=== PATIENT | male | born 1975 | race Caucasian/White ===

== ENCOUNTER 2019-06-22 23:13 | Inpatient (IN) | payer MEDICAID ==
[~2019-06-22] VITALS: Ht 175.3 cm; Wt 63.6 kg
[2019-06-23] VITALS (28 sets, daily range): BP systolic 116–189; BP diastolic 72–109; Ht 175.3 cm; Wt 63.6 kg
--- NOTE | 2019-06-23 | NUR ---
PT RECIEVED VIA STRETCHER FROM ED. TRANSFERRED TO BED INDEPENDENTLY. DENIES PAIN. VOIDED IN URINAL BEFORE GETTING IN BED. URINE IS BLOOD TINGED. CARDENE GTT BEING TITRATED TO KEEP SBP <140.
[2019-06-23 03:40] LABS: BASOPHILS 0.7 % (0-2); EOSINOPHILS 3.7 % (0-7); HEMATOCRIT 38.9 % (42.0-54.0); HEMOGLOBIN 13.5 g/dL (13.5-17.5); LYMPHOCYTES 26.2 % (15-50); MCH 33.7 pg (26.0-34.0); MCHC 34.7 g/dL (31.0-37.0); MEAN PLATELET VOLUME 10.3 fL (7.4-10.4); MONOCYTES 7.5 % (2-11); NEUTROPHILS 61.9 % (40-80); PLATELET COUNT 158 10x3/uL (130-400); RBC 4.01 10x6/uL (4.20-6.10); RDW 12.6 % (11.5-14.5)
[2019-06-23 04:04] LABS: ALBUMIN 3.5 g/dL (3.4-5.0); ANION GAP 13.8 mmol/L (8-16); BILIRUBIN - TOTAL 0.72 mg/dL (0.2-1.3); CALCIUM 8.1 mg/dL (8.5-10.1); CARBON DIOXIDE 24.2 mmol/L (21.0-32.0); MAGNESIUM - SERUM 1.7 mg/dL (1.8-2.4); PHOSPHOROUS 2.7 mg/dL (2.5-4.9); PROTEIN - SERUM 6.3 g/dL (6.4-8.2); THYROID STIMULATING HORMONE 2.67 uIU/mL (0.36-3.74); TROPONIN-I 0.039 ng/mL (0.000-0.060)
--- NOTE | 2019-06-23 05:00 | NUR ---
CARDENE GTT OFF. PT IS SLEEPING. NO SIGN OF DISTRESS.
--- NOTE | 2019-06-23 07:00 | NUR ---
REPORT RECEVIED FROM THE OFF GOING RN. SEE ASSESSMENT IN THE PTS FLOW SHEET. PT A&O X4. CALM AND COOPERATIVE MOOD. PT ABLE TO MOVE INDEPENDETLY. VSS. RA NSR ON THE MONITOR. BP STABLE. PT DENIES PAIN AT THIS TIME. BREAKFAST TRAY PROVIDED FOR THE PT. PT ABLE TO STAND WITH A NORMAL STEADY GAIT AND VOID CLEAR YELLOW URINE IN THE URNIAL. CALL LIGHT IN REACH. WILL CONT POC.
--- NOTE | 2019-06-23 07:00 | NUR ---
VOIDED IN URINAL. URINE IS CLEAR THIS AM. CARDENE REMAINS OFF.
--- NOTE | 2019-06-23 08:35 | NUR ---
PT STARTED THROWING UP. PT STATED "IT WAS THE REALLY DRY BISCUTE" I ASKED IF HE WAS HURTING AND HE STATED THAT HE HAS A HEADACHE. MORPHINE AND ZOFRAN GIVEN. SEE MAR. WILL REASSESS.
--- NOTE | 2019-06-23 09:32 | NUR ---
AM MEDS GIVEN. PT STATES "I FEEL MUCH BETTER" CALL LIGHT IN REACH. WILL CONT POC.
--- NOTE | 2019-06-23 10:30 | NUR ---
DR HENSLEY PAGED R/T BOARDERLINE HTN.
--- NOTE | 2019-06-23 11:00 | NUR ---
REASSESSMENT COMPLETED. SEE FLOW SHEET.
--- NOTE | 2019-06-23 12:30 | NUR ---
DR HENSLEY REPAGED R/T BOARDERLINE HTN.
--- NOTE | 2019-06-23 13:34 | NUR ---
SPOKE WITH DR CHANG. SEE ORDERS.
--- NOTE | 2019-06-23 13:59 | NUR ---
DR VARGAS AT THE PTS BEDSIDE. OK TO TRANSFER TO THE FLOOR.
[2019-06-23 14:19] LABS: ANION GAP 9.4 mmol/L (8-16); CALCIUM 8.7 mg/dL (8.5-10.1); CARBON DIOXIDE 27.3 mmol/L (21.0-32.0); CREATININE - SERUM 2.1 mg/dL (0.6-1.3); MAGNESIUM - SERUM 1.8 mg/dL (1.8-2.4)
[2019-06-23 14:23] LABS: POTASSIUM - SERUM 3.7 mmol/L (3.5-5.1)
--- NOTE | 2019-06-23 15:29 | NUR ---
ELL TEACHER AT THE PTS BEDSIDE.
--- NOTE | 2019-06-23 16:00 | NUR ---
REPORT CALLED TO GEOVANNA ON MED 3. TRANSFERED DELAYED DUE TO ROOM BEING CLEANED.
--- NOTE | 2019-06-23 16:45 | NUR ---
ROOM CLEANED AND PT TRANSPORTED VIA WC BY CHARGE NURSE IN A STABLE CONDITION.
--- NOTE | 2019-06-23 16:59 | NUR ---
HERE FOR OBSERVATION. MAY DC IN AM. ALERT ADN ORIENTED. DINNER ORDERED. NOT C/O PAIN OR DISTRESS NOTED. TRANSFERED FROM CVICU AT THIS TIME. R NATALIA ALLISON. CL IN REACH.
--- NOTE | 2019-06-23 18:13 | NUR ---
NO CHANGE IN ASSESSMENT. RESP EVEN AND UNLABORED. CL IN REACH.
--- NOTE | 2019-06-23 18:16 | NUR ---
NPO AFTER MN TONIGHT OR ZORA IN INDUSTRIAL SERVICER.
--- NOTE | 2019-06-23 19:29 | NUR ---
PT LYING IN BED WATCHING TV. CL IN REACH. DENIES NEEDS AT THIS TIME. BED IN LOW SIDE RAILS X2. LUNGS CLEAR. BOWEL ACTIVE X4. A/O X4. UP AD CECE. RESP EVEN AND UNLABORED. WILL CONTINUE TO MONITOR.
--- NOTE | 2019-06-23 22:15 | NUR ---
PAGED HECTOR ABOUT BP BEING 189/104, HECTOR ORDERED ONE TIME DOSE OF CLONIDINE AND WILL RECHECK BACK AT MIDNIGHT AND SEE IF MED WAS SUCCESSFUL. WILL CONTINUE TO MONITOR.
[2019-06-23 22:45] LABS: APPEARANCE CLEAR (CLEAR); BILIRUBIN NEGATIVE (NEGATIVE); COLOR YELLOW (YELLOW); GLUCOSE NEGATIVE (NEGATIVE); KETONE NEGATIVE (NEGATIVE); NITRITE NEGATIVE (NEGATIVE); PROTEIN NEGATIVE (NEGATIVE); SPECIFIC GRAVITY 1.015 (1.005-1.020); UROBILINOGEN NORMAL (NORMAL)
--- NOTE | 2019-06-23 22:57 | NUR ---
BP TAKEN BEFORE CLONIDINE WAS GIVEN 183/109 PULSE 77 WILL RECHECK IN AN HOUR
[2019-06-24] VITALS (9 sets, daily range): BP systolic 173–201; BP diastolic 108–130
--- NOTE | 2019-06-24 01:30 | NUR ---
BP 166/113 PAGED HECTOR ZIMMER AND ORDERED NORVASC 2.5 MG ONE TIME ORDER WILL CONTINUE TO MONITOR.
--- NOTE | 2019-06-24 03:33 | NUR ---
I have reviewed this patient and I concur with the Shift Assessment completed by the Licensed Practical Nurse today this shift.
[2019-06-24 05:36] LABS: BASOPHILS 0.5 % (0-2); EOSINOPHILS 3.4 % (0-7); HEMATOCRIT 37.9 % (42.0-54.0); IMMATURE GRANULOCYTES 0.2 % (0-5); LYMPHOCYTES 29.4 % (15-50); MCHC 34.3 g/dL (31.0-37.0); MEAN PLATELET VOLUME 10.5 fL (7.4-10.4); NEUTROPHILS 59.5 % (40-80); PLATELET COUNT 175 10x3/uL (130-400); RBC 3.82 10x6/uL (4.20-6.10); RDW 12.9 % (11.5-14.5); WBC 5.5 10x3/uL (4.8-10.8)
[2019-06-24 06:03] LABS: MCV 99.2 fL (80.0-100.0)
[2019-06-24 06:11] LABS: ANION GAP 9.5 mmol/L (8-16); CALCIUM 8.8 mg/dL (8.5-10.1); CARBON DIOXIDE 28.5 mmol/L (21.0-32.0)
--- NOTE | 2019-06-24 07:14 | NUR ---
PT IS RESTING IN BED WITH EYES OPEN. RESPIRATIONS ARE EVEN AND UNLABORED. PT IS AAO X 4. PT DENIES PRESENCE OF NUMBNESS/TINGLING/DIZZINESS/SYNCOPE. SEE FLOWSHEET FOR VITALS. PT DENIES PRESENCE OF PAIN/N/V AT THIS TIME. BED IS IN THE LOWEST POSITION. CALL LIGHT AND BEDSIDE TABLE ARE WITHIN REACH. SIDE RAILS X 2. PT DENIES FURTHER NEEDS. WILL CONT TO MONITOR.
--- NOTE | 2019-06-24 08:00 | NUR ---
RACHAEL HOPPER APRN PAGED TO NOTIFY OF PT HTN.
--- NOTE | 2019-06-24 08:04 | NUR ---
RACHAEL HOPPER APRN RETURN PAGE AND GAVE INSTRUCTIONS TO NOTIFY NANCY RENEE. PAGE PLACED TO NANCY RENEE.
--- NOTE | 2019-06-24 08:21 | NUR ---
NANCY BORJA APRN RETURNED PAGE AND NOTIFIED OF PT STATE AND MEDICATIONS ADMINISTERED. SEE EMAR. TELEPHONE ORDERS RECD ARE APRESOLINE 10MG IV Q 6 HOURS PRN FOR SBP >170 AND DBP >[address] ORDERS.
--- NOTE | 2019-06-24 10:05 | NUR ---
MANUAL BP 180/110. WILL ADMINISTER PRN APRESOLINE. SEE EMAR. PT DENIES PRESENCE OF HEADACHE/BLURRED VISION PT WITH NO APPARENT S/S OF DISTRESS NOTED AT THIS TIME. BED IS IN THE LOWEST POSITION. CALL LIGHT AND BEDSIDE TABLE ARE WITHIN REACH. SIDE RAILS X 2. WILL CONT TO MONITOR.
--- NOTE | 2019-06-24 12:24 | NUR ---
PT AMBULATES TO NURSE STATION STATING "HEY I NOTICED THAT I WAS GETTING A LITTLE LIGHT HEADED AND WANTED YOU TO KNOW AND SEE IF YOU COULD CHECK MY BLOOD PRESSURE". PT AMBULATES BACK TO PT ROOM WITHOUT DIFFICULTY AND SITS IN BED AND BEGINS EATING LUNCH TRAY. MANUAL BP OBTAINED AT 200/120. PAGE PLACED TO NANCY BORJA APRN TO NOTIFY.
--- NOTE | 2019-06-24 16:27 | NUR ---
PT CONTINUES WITH HTN. SEE EMAR AND VITALS FLOWSHEET. PT DOES NOT HAVE ANY APPARENT S/S OF DISTRESS AT THIS TIME. PT DENIES PRESENCE OF PAIN/N/V/DIZZINESS AT THIS TIME. BED IS IN THE LOWEST POSITION. CALL LIGHT AND BEDSIDE TABLE ARE WITHIN REACH. SIDE RAILS X 2. WILL CONT TO MONITOR.
--- NOTE | 2019-06-24 16:59 | MORECARE ---
CASE MANAGEMENT DISCHARGE SUMMARY PATIENT: EMMY SHIELDS UNIT: [id number] ADM DATE: 06/22/19 AGE: 44 : 79 SEX: M ROOM/BED: D.1210 AUTHOR: MERIDOC PHYSICIAN: REFERRING PHYSICIAN: BOB HENSLEY MD DATE OF SERVICE: 06/24/19 Discharge Plan Patient Name: EMMY SHIELDS Facility: [facility]:[place] : 1975 Planned Disposition: Anticipated Discharge Date: Discharge Date: Expected LOS: Initial Reviewer: [email or web address] Initial Review Date: 06/24/2019 Generated: 06/24/19 5:59 pm Comments DCP- Discharge Planning Updated by [email or web address]: Melly Soto on 06/24/19 3:[address] Patient Name: EMMY SHIELDS Admission Status: ER Accout number: [id number] Admission Date: 06-22-2019 : 1975 Admission Diagnosis: Attending: BOB OLIVERA Current LOS: 2 Anticipated DC Date: Planned Disposition: Primary Insurance: MEDICAID [place] PENDING Discharge Planning Comments: CM met with patient at bedside after explaining CM role and obtaining verbal consent. Patient lives at home alone where he is independent with his care and plans to return there upon discharge. Patient feels this would be a safe discharge. CM discussed availability / needs of home health and medical equipment. Patient states his brother is going to get him a B/P cuff. Patient denies any discharge needs at this time. Patient states he will have his family drive him home upon discharge. Patient may need assistance with medication at discharge since Medicaid is pending CM will continue to follow and assist as needed with discharge planning / needs. Batch Plant Supervisor: Melly Soto DCPIA - Discharge Planning Initial Assessment Updated by [email or web address]: Melly Soto on 06/24/19 4:52 pm * Is the patient Alert and Oriented? Yes * How many steps to enter\exit or inside your home? * PCP NO PCP * Pharmacy [facility] * Preadmission Environment Home Alone * ADLs Independent * Equipment None * List name and contact numbers for known caregivers / representatives who currently or will assist patient after discharge: JIMMIE SHIELDS - BROTHER- [phone] * Verbal permission to speak to the caregivers and representatives has been obtained from the patient. Yes * Community resources currently utilized None * Additional services required to return to the preadmission environment? No * Can the patient safely return to the preadmission environment? Yes * Has this patient been hospitalized within the prior 30 days at any hospital? No Patient Name: EMMY SHIELDS Page 12395 at 1659 All edits/amendments must be made on the electronic document DICTATION DATE: 06/24/191658 POWER PLANT MECHANIC: AMIE 06/24/191658 RPT#: [id number] DC DATE: STATUS: ADM IN [facility] [address] [place] [address] END OF REPORT
--- NOTE | 2019-06-24 18:01 | NUR ---
PT ARRIVES TO ROOM VIA WHEELCHAIR ESCORTED BY ICU NURSE MELIZA. PT IS AAO X 4. PT RESPIRATIONS ARE EVEN AND UNLABORED. PT DENIES PRESENCE OF PAIN/N/V/DIZZINESS AT THIS TIME. PIV TO RIGHT AND LEFT FA ARE SL AND FLUSH WITHOUT DIFFICULTY. VSS. SEE FLOWSHEET. PT ORIENTED TO FLOOR AND ROOM. PT DENIES FURTHER QUESTIONS/NEEDS AT THIS TIME. BED IS IN THE LOWEST POSITION. CALL LIGHT AND BEDSIDE TABLE ARE WITHIN REACH. SIDE RAILS X 2. WILL CONT TO MONITOR.
--- NOTE | 2019-06-24 18:35 | NUR ---
PT RESTING IN BED WITH EYES OPEN. RESPIRATIONS ARE EVEN AND UNLABORED. PT BP IS 178/112 MANUAL. PT WITHOUT APPARENT S/S OF DISTRESS.
--- NOTE | 2019-06-24 19:29 | NUR ---
PT BP 201/127 PRN CLONIDINE GIVEN PER PROTOCOL. WILL CONTINUE TO MONITOR. CL IN REACH. A/O X4. PT SITTING UP EATING POPEYES AND WATCHING TV. DENIES NEEDS AT THIS TIME. RESP EVEN AND UNLABORED. LUNGS CLEAR. BOWEL ACTIVE X4. NO S/S OF DISTRESS AND DENIES FEELING DIFFERENT DUE TO HIGH BP.
[2019-06-25] VITALS (11 sets, daily range): BP systolic 144–187; BP diastolic 90–122
--- NOTE | 2019-06-25 00:03 | NUR ---
BP OF 160/116, PRN CLONIDINE GIVEN. WCTM
--- NOTE | 2019-06-25 01:08 | NUR ---
I have reviewed this patient and I concur with the Shift Assessment completed by the Licensed Practical Nurse today this shift.
--- NOTE | 2019-06-25 05:12 | NUR ---
PRN APPRESOLINE GIVEN FOR BP OF 174/114. WILL RECHECK IN AN HR AND GIVE CLONIDINE IF STILL ELEVATED
--- NOTE | 2019-06-25 06:04 | NUR ---
PT BP LOWERED TO 151/90 AFTER APRESOLINE WAS ADMINISTERED. WILL HOLD OFF ON CLONIDINE DUE TO PERAMETERS. WCTM
[2019-06-25 06:18] LABS: BASOPHILS 0.5 % (0-2); EOSINOPHILS 2.2 % (0-7); HEMATOCRIT 38.1 % (42.0-54.0); HEMOGLOBIN 13.2 g/dL (13.5-17.5); IMMATURE GRANULOCYTES 0.2 % (0-5); LYMPHOCYTES 26.7 % (15-50); MCH 34.2 pg (26.0-34.0); MCHC 34.6 g/dL (31.0-37.0); MCV 98.7 fL (80.0-100.0); MEAN PLATELET VOLUME 10.8 fL (7.4-10.4); MONOCYTES 6.8 % (2-11); NEUTROPHILS 63.6 % (40-80); PLATELET COUNT 179 10x3/uL (130-400); RBC 3.86 10x6/uL (4.20-6.10); RDW 12.8 % (11.5-14.5)
[2019-06-25 06:32] LABS: ANION GAP 14.5 mmol/L (8-16); CALCIUM 8.8 mg/dL (8.5-10.1); CARBON DIOXIDE 23.5 mmol/L (21.0-32.0); CREATININE - SERUM 1.8 mg/dL (0.6-1.3); PHOSPHOROUS 2.7 mg/dL (2.5-4.9)
--- NOTE | 2019-06-25 08:33 | NUR ---
PT BP 181/122. AM MEDS GIVEN. PRN HYDRALIZINE GIVEN AT THIS TIME. WILL RECHECK.
--- NOTE | 2019-06-25 09:48 | NUR ---
PT BP RECHECK AT 0938 167/104. PT C/O OF NAUSEA AND THEN WENT TO THE BR VOMITTING. PRN ZOFRAN, TYLENOL AND CATAPRES GIVEN AT THIS TIME. PT PROVIDED WITH COLD WASH CLOTH AND SPRITE. AYESHA.
--- NOTE | 2019-06-25 10:31 | NUR ---
PT BP RECHECK 158/102 AT THIS TIME.
--- NOTE | 2019-06-25 11:42 | NUR ---
PT BP RECHECK 144/94.
--- NOTE | 2019-06-25 14:34 | NUR ---
PT BP 172/115. REC'D CLONIDINE PATCH FROM PHARMACY AND APPLIED TO PT. WILL RECHECK IN THIRTY MNUTES TO EVALUATE NEED FOR PRN MEDICATION.
--- NOTE | 2019-06-25 15:08 | NUR ---
PT BP RECHECK 187/121. PRN HYDRALIZINE GIVEN AT THIS TIME.
--- NOTE | 2019-06-25 17:18 | MORECARE ---
CASE MANAGEMENT DISCHARGE SUMMARY PATIENT: EMMY SHIELDS UNIT: [id number] ADM DATE: 06/22/19 AGE: 44 : 79 SEX: M ROOM/BED: D.2225 AUTHOR: MERIDOC PHYSICIAN: REFERRING PHYSICIAN: BOB HENSLEY MD DATE OF SERVICE: 06/25/19 Discharge Plan Patient Name: EMMY SHIELDS Facility: [facility]:[place] : 1975 Planned Disposition: Anticipated Discharge Date: Discharge Date: Expected LOS: Initial Reviewer: [email or web address] Initial Review Date: 06/24/2019 Generated: 06/25/19 6:17 pm Comments DCP- Discharge Planning Updated by [email or web address]: Sandy Flores on 06/25/19 4:[address] Per desiree Colemangreenhouse technician, there is no TRANSFER BACK agreement documented with [facility]. DCP- Discharge Planning Updated by [email or web address]: Melly Soto on 06/24/19 3:[address] Patient Name: EMMY SHIELDS Admission Status: ER Accout number: [id number] Admission Date: 06-22-2019 : 1975 Admission Diagnosis: Attending: BOB OLIVERA Current LOS: 2 Anticipated DC Date: Planned Disposition: Primary Insurance: MEDICAID [place] PENDING Discharge Planning Comments: CM met with patient at bedside after explaining CM role and obtaining verbal consent. Patient lives at home alone where he is independent with his care and plans to return there upon discharge. Patient feels this would be a safe discharge. CM discussed availability / needs of home health and medical equipment. Patient states his brother is going to get him a B/P cuff. Patient denies any discharge needs at this time. Patient states he will have his family drive him home upon discharge. Patient may need assistance with medication at discharge since Medicaid is pending CM will continue to follow and assist as needed with discharge planning / needs. Stock Dealer: Melly Soto DCPIA - Discharge Planning Initial Assessment Updated by [email or web address]: Melly Soto on 06/24/19 4:52 pm * Is the patient Alert and Oriented? Yes * How many steps to enter\exit or inside your home? * PCP NO PCP * Pharmacy [facility] * Preadmission Environment Home Alone * ADLs Independent * Equipment None * List name and contact numbers for known caregivers / representatives who currently or will assist patient after discharge: JIMMIE SHIELDS - BROTHER- [phone] * Verbal permission to speak to the caregivers and representatives has been obtained from the patient. Yes * Community resources currently utilized None * Additional services required to return to the preadmission environment? No * Can the patient safely return to the preadmission environment? Yes * Has this patient been hospitalized within the prior 30 days at any hospital? No Last DP export: 06/24/19 3:59 Patient Name: EMMY SHIELDS Page 04724 at 1718 All edits/amendments must be made on the electronic document DICTATION DATE: 06/25/191716 SURGICAL RESIDENT: AMIE 06/25/191716 RPT#: [id number] DC DATE: STATUS: ADM IN [facility] [address] [place] [address] END OF REPORT
--- NOTE | 2019-06-25 17:23 | NUR ---
PT BP RECHECK 167/97. WCTM.
--- NOTE | 2019-06-25 20:00 | NUR ---
LYING QUIELTY WITH NO DISTRESS NOTED. RESP UNALBORED. NO COMPLAINTS VOICED. SL TO RAC WITH NO REDNESS OR EDEMA NOTED. CL IN REACH
[2019-06-26 00:30] VITALS: BP 172/109
--- NOTE | 2019-06-26 02:23 | NUR ---
I have reviewed this patient and I concur with the Shift Assessment completed by the Licensed Practical Nurse today this shift.
[2019-06-26 04:57] VITALS: BP 182/100
[2019-06-26 05:56] LABS: BASOPHILS 0.3 % (0-2); EOSINOPHILS 0.4 % (0-7); HEMATOCRIT 39.1 % (42.0-54.0); HEMOGLOBIN 13.4 g/dL (13.5-17.5); IMMATURE GRANULOCYTES 0.1 % (0-5); LYMPHOCYTES 11.6 % (15-50); MCH 34.1 pg (26.0-34.0); MCHC 34.3 g/dL (31.0-37.0); MCV 99.5 fL (80.0-100.0); MEAN PLATELET VOLUME 10.4 fL (7.4-10.4); MONOCYTES 5.8 % (2-11); NEUTROPHILS 81.8 % (40-80); PLATELET COUNT 180 10x3/uL (130-400); RBC 3.93 10x6/uL (4.20-6.10); WBC 7.2 10x3/uL (4.8-10.8)
[2019-06-26 06:39] LABS: ANION GAP 12.7 mmol/L (8-16); CALCIUM 9.1 mg/dL (8.5-10.1); CREATININE - SERUM 1.8 mg/dL (0.6-1.3); MAGNESIUM - SERUM 1.8 mg/dL (1.8-2.4); PHOSPHOROUS 2.7 mg/dL (2.5-4.9); POTASSIUM - SERUM 3.7 mmol/L (3.5-5.1)
[2019-06-26 09:09] LABS: METANEPH/CREAT RATIO 0.3 (0.0-1.0)
[2019-06-26 09:12] VITALS: BP 173/119
--- NOTE | 2019-06-26 09:18 | NUR ---
PT IN ROOM MISERABLE STATES HE CONTINUES TO GET SICK AND THERE IS NOTHING LEFT FOR HIM TO THROW UP, PT'S BROTHER CALLED READY TO CHECK PT OUT ASKED PT TO PLEASE WAIT FOR DR TO MAKE ROUNDS BROTHER IS ON HIS WAY UP STATES AN HOUR AWAY WILL CONTINUE WITH PLAN OF CARE
--- NOTE | 2019-06-26 09:34 | NUR ---
SPOKE TO ANSHUL ZIMMER AND CONSULTED CARDIOLOGY FOR HYPERTENSIVE URGENCY, ADMINISTERED PRN CTATAPRES FOR BP 169/119 PT IS NAUSEOUS STILL AND VERY AGITATED, ASKED PT TO BARE WITH ME AND WE WILL GET TO THE BOTTOM OF HTN. PT AGREEABLE TO WAITING FOR DR'S AND NOT LEAVING AT THIS TIME.
[2019-06-26 10:36] VITALS: BP 173/119
[2019-06-26 10:38] VITALS: BP 160/106
--- NOTE | 2019-06-26 10:42 | NUR ---
PT REFUSED ORDERED APRESOLINE 1 TIME ORDER, PT BLOOD PRESSURE 160/106, RELAYED TO NURSE PRACTITIONER ARON
--- NOTE | 2019-06-26 11:02 | NUR ---
SPOKE TO PT BROTHER WHO STATED THAT PT DRINKS WHISKEY TO HELP SLEEP AND TAKES BENADRYL WELL. WILL PASS INFORMATION ON TO NURSE PRACTIONER AND DOCTOR
[2019-06-26] MEDS ORDERED: NICODERM C1 PATCH .1 TRANSDERM (11:31)
[2019-06-26] MEDS ORDERED: NORVASC10 MG PO (11:31)
[2019-06-26] MEDS ORDERED: CATAPRES0.1 MG PO (11:32)
[2019-06-26] MEDS ORDERED: CATAPRES TTS-10.1 MG TRANSDERM (11:32)
--- NOTE | 2019-06-26 12:22 | NUR ---
OFFERED PT FLU SHOT-HE DECLINED.
--- NOTE | 2019-06-26 12:23 | MORECARE ---
CASE MANAGEMENT DISCHARGE SUMMARY PATIENT: EMMY SHIELDS UNIT: [id number] ADM DATE: 06/22/19 AGE: 44 : 79 SEX: M ROOM/BED: D.2225 AUTHOR: MERI,DOC PHYSICIAN: REFERRING PHYSICIAN: BOB HENSLEY MD DATE OF SERVICE: 06/26/19 Discharge Plan Patient Name: EMMY SHIELDS Facility: [facility]:[place] : 1975 Planned Disposition: Anticipated Discharge Date: Discharge Date: Expected LOS: Initial Reviewer: [email or web address] Initial Review Date: 06/24/2019 Generated: 06/26/19 1:23 pm Comments DCP- Discharge Planning Updated by [email or web address]: Sandy Flores on 06/26/19 11:[address] Patient's brother is at bedside to drive patient home. CM provided a [employer] card, encouraged patient to download the shad so he can compare drug prices. Patient verbalizes same. Voices no other needs at this time. DCP- Discharge Planning Updated by [email or web address]: Sandy Flores on 06/25/19 4:[address] Per [place] data warehouse administrator, there is no TRANSFER BACK agreement documented with [facility]. DCP- Discharge Planning Updated by [id number]: Melly Soto on 06/24/19 3:[address] Patient Name: EMMY SHIELDS Admission Status: ER Accout number: [id number] Admission Date: 06-22-2019 : 1975 Admission Diagnosis: Attending: BOB OLIVERA Current LOS: 2 Anticipated DC Date: Planned Disposition: Primary Insurance: MEDICAID [place] PENDING Discharge Planning Comments: CM met with patient at bedside after explaining CM role and obtaining verbal consent. Patient lives at home alone where he is independent with his care and plans to return there upon discharge. Patient feels this would be a safe discharge. CM discussed availability / needs of home health and medical equipment. Patient states his brother is going to get him a B/P cuff. Patient denies any discharge needs at this time. Patient states he will have his family drive him home upon discharge. Patient may need assistance with medication at discharge since Medicaid is pending CM will continue to follow and assist as needed with discharge planning / needs. Shell Mold Bonding Machine Operator: Melly Soto DCPIA - Discharge Planning Initial Assessment Updated by [email or web address]: Melly Soto on 06/24/19 4:52 pm * Is the patient Alert and Oriented? Yes * How many steps to enter\exit or inside your home? * PCP NO PCP * Pharmacy [facility] * Preadmission Environment Home Alone * ADLs Independent * Equipment None * List name and contact numbers for known caregivers / representatives who currently or will assist patient after discharge: JIMMIE SHIELDS - BROTHER- [phone] * Verbal permission to speak to the caregivers and representatives has been obtained from the patient. Yes * Community resources currently utilized None * Additional services required to return to the preadmission environment? No * Can the patient safely return to the preadmission environment? Yes * Has this patient been hospitalized within the prior 30 days at any hospital? No Last DP export: 06/25/19 4:18 Patient Name: EMMY SHIELDS Page 07867 at 1223 All edits/amendments must be made on the electronic document DICTATION DATE: 06/26/19 1223 APPLICATION SUPPORT DEVELOPER: AMIE 06/26/19 1223 RPT#: [id number] DC DATE: STATUS: ADM IN [facility] [address] [place] [address] END OF REPORT
[2019-06-26] MEDS ORDERED: HYDROCHLOROTHIA25 MG PO (15:41)
[2019-06-26] MEDS ORDERED: COREG6.25 MG PO (15:41)
--- NOTE | 2019-06-26 15:41 | NUR ---
PT'S SISTER CALLED AND STATED THEY DID NOT GET RX'S FOR COREG AND HCTZ DR CORTEZ HAD TOLD THEM. SPOKE WITH GORAN CANO, WITH DR CHANG AND [employer]. CALLED TO [facility] IN [place], SPOKE WITH [facility].
--- NOTE | 2019-06-27 14:03 | MORECARE ---
CASE MANAGEMENT DISCHARGE SUMMARY PATIENT: EMMY SHIELDS UNIT: [id number] ADM DATE: 06/22/19 AGE: 44 : 79 SEX: M ROOM/BED: D.2225 AUTHOR: MERI,DOC PHYSICIAN: REFERRING PHYSICIAN: BOB HENSLEY MD DATE OF SERVICE: 06/27/19 Discharge Plan Patient Name: EMMY SHIELDS Facility: [facility]:[place] : 1975 Planned Disposition: Anticipated Discharge Date: Discharge Date: 06/26/2019 Expected LOS: Initial Reviewer: [email or web address] Initial Review Date: 06/24/2019 Generated: 06/27/19 3:03 pm Comments DCP- Discharge Planning Updated by [email or web address]: Sandy Flores on 06/26/19 11:[address] Patient's brother is at bedside to drive patient home. CM provided a [employer] card, encouraged patient to download the shad so he can compare drug prices. Patient verbalizes same. Voices no other needs at this time. DCP- Discharge Planning Updated by [email or web address]: Sandy Flores on 06/25/19 4:[address] Per desiree Colemanwarehouse foreman, there is no TRANSFER BACK agreement documented with [facility]. DCP- Discharge Planning Updated by [email or web address]: Melly Soto on 06/24/19 3:[address] Patient Name: EMMY SHIELDS Admission Status: ER Accout number: [id number] Admission Date: 06-22-2019 : 1975 Admission Diagnosis: Attending: BOB OLIVERA Current LOS: 2 Anticipated DC Date: Planned Disposition: Primary Insurance: MEDICAID [place] PENDING Discharge Planning Comments: CM met with patient at bedside after explaining CM role and obtaining verbal consent. Patient lives at home alone where he is independent with his care and plans to return there upon discharge. Patient feels this would be a safe discharge. CM discussed availability / needs of home health and medical equipment. Patient states his brother is going to get him a B/P cuff. Patient denies any discharge needs at this time. Patient states he will have his family drive him home upon discharge. Patient may need assistance with medication at discharge since Medicaid is pending CM will continue to follow and assist as needed with discharge planning / needs. Gamb Cutter: Melly Soto DCPIA - Discharge Planning Initial Assessment Updated by [email or web address]: Melly Soto on 06/24/19 4:52 pm * Is the patient Alert and Oriented? Yes * How many steps to enter\exit or inside your home? * PCP NO PCP * Pharmacy [facility] * Preadmission Environment Home Alone * ADLs Independent * Equipment None * List name and contact numbers for known caregivers / representatives who currently or will assist patient after discharge: JIMMIE SHIELDS - BROTHER- [phone] * Verbal permission to speak to the caregivers and representatives has been obtained from the patient. Yes * Community resources currently utilized None * Additional services required to return to the preadmission environment? No * Can the patient safely return to the preadmission environment? Yes * Has this patient been hospitalized within the prior 30 days at any hospital? No Last DP export: 06/26/19 11:23 Patient Name: EMMY SHIELDS Page 72975 at 1403 All edits/amendments must be made on the electronic document DICTATION DATE: 06/27/19 140 MANAGED CARE LIAISON: AMIE 06/27/19 140 RPT#: [id number] [place] DATE:06/26/19 STATUS: DIS IN [facility] [address] [place] [address] END OF REPORT
--- NOTE | 2019-06-29 13:07 | EC ---
PATIENT:EMMY SHIELDS DATE OF SERVICE: 06/22/19 SEX: M MEDICAL RECORD: [id number] DATE OF : [birth year] LOCATION:[facility] AGE OF PATIENT: 44 ADMISSION DATE: 06/22/19 REFERRING PHYSICIAN: INTERPRETING PHYSICIAN: GILLIAN CORTEZ MD ECHOCARDIOGRAM REPORT ECHO CHARGES 4 ECHO COMPLETE Date: 06/26/19 CLINICAL DIAGNOSIS: HTN CRISIS ECHOCARDIOGRAPHIC MEASUREMENTS (adult normal given) AC root (d.<3.7cm) 3.4 cm LV Septum d (<1.2 cm> 1.2 cm Valve Excursion 1.5 cm LV Septum (systole) 1.4 cm Left Atria (s.<4.0cm> 4.1 cm LVPW d(<1.2cm) 1.6 cm RV (d.<2.3cm) 3.9 cm LVPW (sytole) 1.8 cm LV diastole(<5.6CM) 4.2 cm MV E-F(>70mm/sec) cm LV systole 2.8 cm LVOT Diameter 1.8 cm MV exc.(>10mm) 1.6 cm Est.ejection fraction (50-75%) % DOPPLER: LVIT cm/sec A 65.0 cm/sec E 71.0 cm/sec LA cm/sec RVSP 16 mmHg LVOT 100 cm/sec AOP1/2T m/s Asc. Ao 117 cm/sec RVOT 100 cm/sec RA cm/sec PA 102 cm/sec AV Gradient Peak 5.49 mmHg AV Mean 3.20 mmHg AV Area 1.8 cm MV Gradient Peak 2.64 mmHg MV Mean 1.15 mmHg MV Area cm COMMENTS: Touch Up Painter Hand: 2 VIBHA FOSTER Cyber Instructor: 3 Dr. Lopez TAPE# PACS Pericardial Effusion N DATE OF SERVICE: Adequate 2D, Color Flow, Spectral Doppler, and M-Mode. LVH is present. LV internal dimensions are normal. Wall motion is normal. EF is greater than or equal to 55%. Aortic valve is tricuspid and no evidence of stenosis on Doppler interrogation. Left atrium is mildly dilated at upper limits of normal 4.1 cm. Mitral valve shows no prolapse. Trace MR. Right-sided chambers are grossly normal. Trace TR. ECHOCARDIOGRAM REPORT [id number] EMMY SHIELDS TRANSINT:[id number] Voice Confirmation ID: [id number] DOCUMENT ID: [id number] GILLIAN CORTEZ MD at 1307 CC: [id number] DICTATION DATE: 06/27/19 1029 ASPHALT PLANT LABORER: 06/27/192199 DIS IN 06/26/19 [place] [id number] [place] [id number]
--- NOTE | 2019-06-29 13:07 | CN ---
PATIENT NAME:EMMY SHIELDS MEDICAL RECORD: [id number] : 79 LOCATION:[id number] ADMIT DATE: 06/22/19 ACCOUNT: [id number] CONSULTING PHYSICIAN: GILLIAN CORTEZ MD REFERRING PHYSICIAN: BOB HENSLEY MD DATE OF CONSULTATION: 06/26/2019 HISTORY OF PRESENT ILLNESS: A 44-year-old with a history of hypertension, untreated. He previously used to donate plasma and platelets; however, he began being turned down for this over a year ago. He started hypertension, did not seek medical care. He presented to the Emergency Room at [place] with hematuria and acute renal insufficiency. He was transferred here for further evaluation and he is currently on a combination of clonidine, Norvasc. Creatinine has decreased mildly from 2.1 to 1.8. We are asked to see him to assist with blood pressure management. PAST MEDICAL HISTORY: Otherwise, unremarkable. ALLERGIES: None known. SOCIAL HISTORY: He smokes about a pack a day, drinks on a pretty much daily basis. Previous exercise including jogging without in the last several months. Also high caffeine intake. REVIEW OF SYSTEMS: The patient reports easy bruising but reports no swollen glands. The patient reports no fever, no night sweats, no significant weight gain, no significant weight loss. No significant exercise tolerance. The patient reports no dry eyes, no irritation, no vision change. Patient reports no difficulty hearing and no ear pain. Patient reports no frequent nose bleeds or nose and sinus problems. Patient reports on arm pain on exertion. No shortness of breath while lying down. No history of heart murmur. Patient reports no cough, no wheezing or coughing up blood. Patient reports no abdominal pain, no vomiting. Normal appetite. No diarrhea and not vomiting blood. No nausea and no constipation. Patient reports no incontinence. No difficulty urinating. No hematuria. No increased frequency. Patient reports no muscle aches. No weakness, no arthralgias, no back pain. No swelling of the extremities. Patient reports no abnormal mole, no jaundice, no rashes. Reports no loss of consciousness. No weakness and no numbness. No seizures, dizziness, or headaches. The patient reports no depression, no sleep disturbance, feeling safe in a relationship and no alcohol abuse. Patient reports on fatigue. Reports no runny nose or sinus pressure. No itching, no hives, and no frequent sneezing. PHYSICAL EXAMINATION: GENERAL: This is a pleasant gentleman, in no acute distress, appears stated age. VITAL SIGNS: Blood pressure 160/106, pulse 90 and regular. HEENT: Normocephalic, atraumatic. NECK: No bruits noted. HEART: Regular, S4 gallop is noted. LUNGS: Good air excursion. ABDOMEN: Soft, nontender. EXTREMITIES: Pulses 2+. No edema. DIAGNOSTIC DATA: ECG shows LVH. CONSULT REPORT [id number] EMMY SHIELDS IMPRESSION: Hypertensive urgency finding, although blood pressure still mildly elevated. We will add carvedilol and hydrochlorothiazide in addition to calcium channel blockade. Discussed in detail lifestyle changes. Hopefully with some adjustments, we may be able to taper down to a lower dose of medications down the road. TRANSINT:[id number] Voice Confirmation ID: [id number] DOCUMENT ID: [id number] GILLIAN CORTEZ MD at 1307 CC: [id number] DICTATION DATE: 06/26/19 1203 METHODS TIME ANALYST: 06/26/19 1401 DIS IN 06/26/19 [facility] [address] [place] [address]
== END 2019-06-26 14:24 | disposition home or self-care (01) | DRG 305 ==
LOC: D.ER 23:13 → D.MS 23:21 → D.CVICU 23:21 → D.M3 23:21 → D.MS 06-25 15:56
PROVIDERS: Emergency Medicine; Family Medicine; ADMIT Family Medicine; ATTEND Family Medicine
DX: I16.0 Hypertensive urgency (principal); N17.9 Acute kidney failure, unspecified; F17.213 Nicotine dependence, cigarettes, with withdrawal; R31.9 Hematuria, unspecified